=== PATIENT | male | born 1960 | race Caucasian/White ===

== ENCOUNTER 2019-05-16 10:34 | Day surgery (SDC) | payer BC ==
[~2019-05-16] VITALS: Ht 180.3 cm; Wt 44.0 kg
[2019-05-16 11:50] VITALS: BP 130/65; PULSE 50; TEMP 97.9
[2019-05-16 15:25] VITALS: BP 126/70; PULSE 67; TEMP 98.3
--- NOTE | 2019-05-16 15:25 | NUR ---
Patient arrives to [facility] via cart, accompanied by SQL DATABASE ADMINISTRATOR and FIELD MECHANIC. Bedside report received. Monitoring applied - VSS and WNL on room air. He is sitting up in bed, alert and oriented. He denies any pain or nausea. His incision is clean, dry, glue intact. Offered and receives water, juice, coffee, and a muffin. His is brought to the bedside. Call light in reach.
[2019-05-16 15:40] VITALS: BP 121/73; PULSE 66
--- NOTE | 2019-05-16 15:40 | NUR ---
Patient is resting comfortably in room. Denies pain, nausea, or need.
[2019-05-16] MEDS ORDERED: MOTRIN 600600 MG/TAB PO (15:42)
[2019-05-16] MEDS ORDERED: NORCO 325 MG-51 TAB PO (15:42)
[2019-05-16 15:55] VITALS: BP 127/68; PULSE 58
--- NOTE | 2019-05-16 15:55 | NUR ---
Patient is resting comfortably in room. VSS and WNL on room air. He states "I'm ready to go home, just going to finish my coffee". Patient has met discharge criteria. Will print discharge papers and return.
--- NOTE | 2019-05-16 16:08 | NUR ---
Patient has met discharge criteria. Discharge instructions discussed, denies any questions, and verbalizes understanding. is at the bedside for instructions. PIV removed with catheter intact and hemostasis achieved. Patient changes to clothing independently.
--- NOTE | 2019-05-16 16:11 | NUR ---
Patient escorted to exit via wheelchair. Discharged to home with ride in private vehicle at 1611.
== END 2019-05-16 16:11 | disposition home or self-care (01) ==
LOC: SDCO 10:34
DX: K42.9 Umbilical hernia without obstruction or gangrene (principal); M50.20 Other cervical disc displacement, unspecified cervical region; R01.1 Cardiac murmur, unspecified
CPT/HCPCS: C1781; J0690; J1885; J2704; J3010; J7120